=== PATIENT | male | born 1975 ===

== ENCOUNTER 2023-03-02 08:38 | Day surgery (SDC) | payer OTHER ==
[~2023-03-02] VITALS: Ht 177.8 cm; Wt 88.5 kg
== END 2023-03-02 21:40 | disposition home or self-care (01) ==
LOC: CIR.AMB 08:38
PROVIDERS: ATTEND Orthopaedic Surgery Hand Surgery
DX: S62.615A Displaced fracture of proximal phalanx of left ring finger, initial encounter for closed fracture (principal); Z20.822 Contact with and (suspected) exposure to COVID-19